=== PATIENT | female | born 1985 | race Caucasian/White ===

== ENCOUNTER 2018-04-30 05:55 | Day surgery (SDC) | payer BC, OTHER ==
[~2018-04-30] VITALS: Ht 162.6 cm; Wt 79.2 kg
[~2018-04-30 05:55] MED LIST: LEVO137T2 PO
[2018-04-30 06:29] VITALS: BP 144/84
[2018-04-30] MEDS ORDERED: LACTATED RINGERS 1,000 ML IV SCH (06:29)
[2018-04-30] MEDS ORDERED: VANCOMYCIN 1,000 MG ONE (06:55)
[2018-04-30] MEDS ORDERED: LIDOCAINE/PF 0.5% ,50ML ONE (06:55)
[2018-04-30] MEDS ORDERED: THROMBIN 5,000 UNIT VIAL TP ONE (06:55)
[2018-04-30] MEDS ORDERED: BUPIVACAINE/PF 0.25% ONE (06:55)
[2018-04-30] MEDS ORDERED: EPINEPHRINE 1 MG/ML, 1ML ONE (06:56)
[2018-04-30 07:04] LABS: CULTURE INDICATED? NO; MICROSCOPIC NOT IND
[2018-04-30 07:18] LABS: PROTHROMBIN TIME 10.6 Seconds (9.6-11.5)
[2018-04-30] MEDS ORDERED: MIDAZOLAM 1 MG/ML, 2ML ONE (07:41)
[2018-04-30] MEDS ORDERED: FENTANYL PF 100 MCG/2ML ONE (07:41)
[2018-04-30] MEDS ORDERED: ONDANSETRON 2MG/ML, 2ML ONE (07:44)
[2018-04-30] MEDS ORDERED: PHENYLEPHRINE 10 MG/ML ONE (07:44)
[2018-04-30] MEDS ORDERED: METOCLOPRAMIDE 5 MG/ML, 2ML ONE (07:44)
[2018-04-30] MEDS ORDERED: ROCURONIUM 10 MG/ML,10ML ONE (07:44)
[2018-04-30] MEDS ORDERED: PROPOFOL 10 MG/ML, 20ML ONE (07:44)
[2018-04-30] MEDS ORDERED: DEXAMETHASONE 4 MG/ML, 5ML ONE (07:44)
[2018-04-30] MEDS ORDERED: SUCCINYLCHOLINE 20 MG/ML, 10ML ONE (07:44)
[2018-04-30] MEDS ORDERED: KETOROLAC 30 MG/1 ML ONE (07:44)
[2018-04-30] MEDS ORDERED: DIPHENHYDRAMINE 50 MG/ML, 1ML ONE (07:44)
[2018-04-30] MEDS ORDERED: KETAMINE 50 MG/ML, 10ML ONE (07:45)
[2018-04-30] MEDS ORDERED: GENTAMICIN 80 MG/2 ML ONE (08:08)
[2018-04-30] MEDS ORDERED: CLINDAMYCIN 150 MG/ML, 6ML ONE (08:08)
[2018-04-30] MEDS ORDERED: SCOPOLAMINE PATCH, 1.5MG PATCH.TD72 TD ONE (09:02)
[2018-04-30] MEDS ORDERED: LABETALOL 5MG/ML, 20ML IV PRN (10:30)
[2018-04-30] MEDS ORDERED: FENTANYL PF 100 MCG/2ML IV PRN (10:30)
[2018-04-30] MEDS ORDERED: ONDANSETRON 2MG/ML, 2ML IVPush PRN (10:30)
[2018-04-30] MEDS ORDERED: MIDAZOLAM 1 MG/ML, 2ML IV PRN (10:30)
[2018-04-30] MEDS ORDERED: OXYcodone 5 MG/5 ML ORAL.SOL UDC PO PRN (10:30)
[2018-04-30] MEDS ORDERED: MEPERIDINE/PF 25MG/0.5ML IVPush PRN (10:30)
[2018-04-30] MEDS ORDERED: HYDROmorphone 2 MG/ML, 1ML ONE (10:32)
[2018-04-30] MEDS: HYDROmorphone 1 MG/ML, 1ML IV PRN ×4 (10:38→11:05)
[2018-04-30] MEDS ORDERED: ALBUTEROL/IPRATROPIUM 2.5MG/0.5MG, 3 ML NPPB PRN (12:00)
== END 2018-04-30 15:35 | disposition home or self-care (01) ==
LOC: OUT 05:55
PROVIDERS: ATTEND Orthopaedic Surgery Orthopaedic Surgery of the Spine
DX: M48.061 Spinal stenosis, lumbar region without neurogenic claudication (principal); M54.16 Radiculopathy, lumbar region; E03.9 Hypothyroidism, unspecified; J45.909 Unspecified asthma, uncomplicated; Z90.710 Acquired absence of both cervix and uterus; Z90.49 Acquired absence of other specified parts of digestive tract; Z98.890 Other specified postprocedural states; Z88.6 Allergy status to analgesic agent; Z88.1 Allergy status to other antibiotic agents; Z88.5 Allergy status to narcotic agent; Z79.899 Other long term (current) drug therapy; Z79.01 Long term (current) use of anticoagulants
CPT/HCPCS: 36415; 63047; 63048; 72100; 81003; 85610; 85730; 94640; J0171; J0330; J1100; J1170; J1200; J1580; J1885; J2001; J2250; J2370; J2405; J2704; J2765; J3010; J3490; J7120; J7620; J3370